=== PATIENT | female | born 1940 | race Caucasian/White ===

== ENCOUNTER 2017-05-04 04:27 | Emergency (ER) | payer MEDICARE, OTHER ==
[~2017-05-04] VITALS: Ht 157.5 cm; Wt 59.0 kg
[~2017-05-04 04:27] MED LIST: AMLO5TAB2 PO; CARV12.5 PO; CLON1TAB4 PO; ESCI20TA PO; HYDR10TA12 PO; MECL25TA3 PO; NAPR375T5 PO; ROSU20TA PO; TOLT4CAP PO; VALS1TAB4 PO; ZOLP10TA2 PO
--- NOTE | 2017-05-04 04:37 | NUR ---
PT BIBA#860 FROM HOME, PT C/O BILATERAL KNEE PAIN WHEN STANDING S/P FALLING OUT OF BED ON KNEES EARLIER THEA. PT AOX3 RR EVEN AND UNLABORED. NO SOB NOTED. NAD NOTED. NO NVD AT THIS TIME. PT GOWNED AND PLACED ON MONITOR WAITING FOR MD WARREN.
--- NOTE | 2017-05-04 04:38 | NUR ---
PT STATES SHE IS NOT IN PAIN AT THIS TIME.
[2017-05-04] MEDS ORDERED: IBUPROFEN 400 MG TABLET PO ONE (05:30)
[2017-05-04] MEDS ORDERED: IBUPROFEN 400 MG TABLET ONE (05:38)
--- NOTE | 2017-05-04 06:05 | NUR ---
SPOKE TO SON JEFF, SON TO [employer] COUNSELOR PT
--- NOTE | 2017-05-04 06:25 | NUR ---
Patient discharged to home in stable condition. Written and verbal after care instructions given. Patient verbalizes understanding of instruction. ambulatory with a steady gait, pt w/c to lobby per sons request.
[2017-05-04 06:26] VITALS: BP 158/70
[2017-05-15] MEDS ORDERED: AZIT250T13 PO (11:11)
== END 2017-05-04 06:27 | disposition home or self-care (01) ==
LOC: ER 04:29
DX: S83.91XA Sprain of unspecified site of right knee, initial encounter (principal); S83.92XA Sprain of unspecified site of left knee, initial encounter; E11.9 Type 2 diabetes mellitus without complications; I10 Essential (primary) hypertension; Z79.899 Other long term (current) drug therapy; Z98.890 Other specified postprocedural states; W06.XXXA Fall from bed, initial encounter; Y93.89 Activity, other specified; Y92.89 Other specified places as the place of occurrence of the external cause; Y99.8 Other external cause status
CPT/HCPCS: 73564-TC; A4606; Z7610

== ENCOUNTER 2017-05-12 12:05 | Inpatient (IN) | payer MEDICARE, OTHER ==
[~2017-05-12] VITALS: Ht 160 cm; Wt 77.1 kg
[2017-05-12] MEDS ORDERED: IV NS 0.9% 500 ML BAG IV ONE (12:30)
[2017-05-12] MEDS ORDERED: IPRATROPIUM NEB FS 0.5 MG/2.5 ML AMPUL.NEB NEB ONE (12:30)
[2017-05-12] MEDS ORDERED: ALBUTEROL FS 2.5 MG/3 ML VIAL.NEB NEB ONE (12:30)
[2017-05-12 12:37] LABS: BASOPHILS # (AUTO) 0.3 /CMM (0.0-0.2); BASOPHILS % (AUTO) 2.5 % (0.0-2.0); EOSINOPHILS # (AUTO) 0.1 /CMM (0.0-0.7); EOSINOPHILS % (AUTO) 0.7 % (0.0-6.0); HEMATOCRIT 36 % (33-45); HEMOGLOBIN 12.2 g/dL (11.5-14.8); LYMPHOCYTES # (AUTO) 2.2 /CMM (0.8-4.8); LYMPHOCYTES % (AUTO) 20.4 % (20.0-44.0); MEAN CORPUSCULAR HEMOGLOBIN 29 PG (26.0-33.0); MEAN CORPUSCULAR HGB CONC 34 g/dl (31.0-36.0); MEAN CORPUSCULAR VOLUME 85 fL (82-100); MONOCYTES % (AUTO) 9.3 % (2.0-12.0); NEUTROPHILS # (AUTO) 7.4 /CMM (1.8-8.9); NEUTROPHILS % (AUTO) 67.1 % (43.0-81.0); PLATELET COUNT (AUTO) 370 /CMM (150-450); RDW COEFFICIENT OF VARIATION 12.8 (11.5-15.0)
[2017-05-12 12:47] LABS: CALCIUM, SERUM 9.2 mg/dL (8.5-10.1); CARBON DIOXIDE 29 mmol/L (21-32); CHLORIDE 100 mmol/L (98-107); CREATININE 0.9 mg/dL (0.6-1.3); GLUCOSE 202 mg/dL (74-106); SODIUM SERUM 136 mmol/L (136-145); UREA NITROGEN, BLOOD 10 mg/dL (7-18)
[2017-05-12 12:56] LABS: TROPONIN I < 0.017 ng/mL (0.00-0.056)
[2017-05-12] MEDS ORDERED: ALBUTEROL FS 2.5 MG/3 ML VIAL.NEB ONE (13:06)
[2017-05-12] MEDS ORDERED: IPRATROPIUM NEB FS 0.5 MG/2.5 ML AMPUL.NEB ONE (13:06)
[2017-05-12] MEDS ORDERED: IV NS 0.9% 1,000 ML IV PRN (14:53)
[2017-05-12] MEDS ORDERED: ONDANSETRON HCL/PF 4 MG/2 ML VIAL IVP PRN (15:00)
[2017-05-12] MEDS ORDERED: MAGNESIUM HYDROXIDE 30 ML UDC PO PRN (15:00)
[2017-05-12] MEDS ORDERED: ZOLPIDEM TARTRATE 5 MG TABLET PO PRN (15:00)
[2017-05-12] MEDS ORDERED: Z GUARD REMEDY 2 OZ OINT TP PRN (15:00)
[2017-05-12] MEDS ORDERED: MAG HYDROX/AL HYDROX/SIMETH 30 ML UDC PO PRN (15:00)
[2017-05-12] MEDS ORDERED: hydrOXYzine 10 MG TABLET PO PRN (15:00)
[2017-05-12] MEDS ORDERED: MECLIZINE HCL 25 MG TABLET PO PRN (15:00)
[2017-05-12] MEDS ORDERED: HYDROCODONE/APAP 5/325MG 1 EACH TABLET PO PRN (15:00)
[2017-05-12] MEDS ORDERED: ACETAMINOPHEN 325 MG TABLET PO PRN (15:00)
[2017-05-12] MEDS ORDERED: clonazePAM 1 MG TABLET PO PRN (15:00)
[2017-05-12] MEDS ORDERED: ALBUTEROL FS 2.5 MG/3 ML VIAL.NEB NEB PRN (15:30)
[2017-05-12] MEDS ORDERED: ALPRAZOLAM 0.25 MG TABLET PO PRN (15:30)
[2017-05-12 16:00] VITALS: BP 150/85
[2017-05-12] MEDS: ENOXAPARIN SODIUM 40 MG/0.4 ML DISP.SYRIN SQ SCH (16:00)
[2017-05-12 18:41] VITALS: BP 150/85
[2017-05-12 20:00] VITALS: BP 143/65
[2017-05-12] MEDS: ZOLPIDEM TARTRATE 10 MG TABLET PO SCH (22:10)
[2017-05-12] MEDS: CARVEDILOL 12.5 MG TABLET PO SCH (22:11)
[2017-05-12] MEDS: ATORVASTATIN 40 MG TABLET PO SCH (22:17)
[2017-05-12] MEDS ORDERED: INSU10VI3 SQ (22:50)
[2017-05-13] VITALS: BP 145/71
[2017-05-13] MEDS ORDERED: DEXTROSE 50%-WATER 50 ML DISP.SYRIN IV PRN ×3 (02:00→15:00)
[2017-05-13 04:00] VITALS: BP 120/56
[2017-05-13] MEDS: BLOOD SUGAR DIAGNOSTIC 1 EACH STRIP IN SCH ×5 (06:05→21:05)
[2017-05-13] MEDS: INSULIN REGULAR, HUMAN 100 UNIT/ML 3 ML VIAL SQ PRN ×4 (06:05→21:12)
[2017-05-13 06:40] LABS: BASOPHILS % (AUTO) 0.4 % (0.0-2.0); EOSINOPHILS # (AUTO) 0.1 /CMM (0.0-0.7); EOSINOPHILS % (AUTO) 0.6 % (0.0-6.0); HEMATOCRIT 32 % (33-45); HEMOGLOBIN 11.1 g/dL (11.5-14.8); LYMPHOCYTES # (AUTO) 1.8 /CMM (0.8-4.8); LYMPHOCYTES % (AUTO) 20.4 % (20.0-44.0); MEAN CORPUSCULAR HEMOGLOBIN 30 PG (26.0-33.0); MEAN CORPUSCULAR HGB CONC 34 g/dl (31.0-36.0); MEAN CORPUSCULAR VOLUME 87 fL (82-100); NEUTROPHILS # (AUTO) 5.8 /CMM (1.8-8.9); NEUTROPHILS % (AUTO) 66.6 % (43.0-81.0); PLATELET COUNT (AUTO) 311 /CMM (150-450); RDW COEFFICIENT OF VARIATION 13.4 (11.5-15.0); RED BLOOD CELL COUNT(AUTO) 3.73 MIL/uL (4.0-5.2); WHITE BLOOD COUNT (AUTO) 8.7 K/uL (4.3-11.0)
[2017-05-13 06:54] LABS: CARBON DIOXIDE 29 mmol/L (21-32); CHLORIDE 99 mmol/L (98-107); MAGNESIUM 1.7 mg/dL (1.8-2.4); PHOSPHORUS 2.9 mg/dL (2.5-4.9); POTASSIUM 4.1 mmol/L (3.5-5.1); SODIUM SERUM 135 mmol/L (136-145); UREA NITROGEN, BLOOD 10 mg/dL (7-18)
[2017-05-13 06:56] LABS: GLUCOSE 351 mg/dL (74-106)
[2017-05-13 07:00] LABS: CHOLESTEROL 142 mg/dL (<200); HDL CHOLESTEROL 33 mg/dL (40-60); LDL 91 mg/dL (0-99); TRIGLYCERIDES 144 mg/dL (30-150)
[2017-05-13 07:01] LABS: TROPONIN I < 0.017 ng/mL (0.00-0.056)
[2017-05-13 08:00] VITALS: BP 128/69
[2017-05-13] MEDS ORDERED: Medication Not On Formulary EA (Rosuvastatin Calcium (Crestor) 20 MG) PO SCH (09:00)
[2017-05-13] MEDS ORDERED: HYDROCHLOROTHIAZIDE 25 MG TABLET PO SCH (09:00)
[2017-05-13] MEDS: ALBUTEROL HALF STRENGTH 1.25 MG/3 ML VIAL.NEB NEB SCH ×3 (09:30→19:17)
[2017-05-13] MEDS: VALSARTAN 80 MG TABLET PO SCH (10:06)
[2017-05-13] MEDS: ESCITALOPRAM OXALATE (10 MG) 10 MG TABLET PO SCH (10:07)
[2017-05-13] MEDS: AMLODIPINE BESYLATE 5 MG TABLET PO SCH (10:07)
[2017-05-13] MEDS: TOLTERODINE 2 MG CAP.SR PO SCH (10:07)
[2017-05-13] MEDS: PANTOPRAZOLE 40 MG TABLET.DR PO SCH (10:08)
[2017-05-13] MEDS: INSULIN NPH/REG 70/30 MIX INJ 100 UNIT/ML VIAL SQ SCH ×2 (11:00→17:00)
[2017-05-13] MEDS: Magnesium 1GM/D5W 100ML PREMIX 100 ML IV SCH ×2 (11:06→12:16)
[2017-05-13] MEDS ORDERED: GUAIFENESIN/CODEINE 10 ML UDC PO PRN (14:30)
[2017-05-13] MEDS ORDERED: methylPREDNISolone SOD SUCC 125 MG/2ML VIAL IV ONE (14:30)
[2017-05-13] MEDS: ALBUTEROL FS 2.5 MG/3 ML VIAL.NEB NEB SCH ×2 (14:30→19:15)
[2017-05-13] MEDS: INSULN 70/30 ASP+PRT/ASP MIX 100 UNIT/ML CARTRIDGE SQ SCH ×2 (15:00→17:34)
[2017-05-13] MEDS ORDERED: INSULIN REGULAR, HUMAN 100 UNIT/ML 3 ML VIAL SQ PRN (15:00)
[2017-05-13] MEDS ORDERED: *INSULIN REGULAR(HUMULIN R)HUM 100 UNIT/ML VIAL SQ PRN (15:00)
[2017-05-13] MEDS: SENNOSIDES/DOCUSATE SODIUM 1 TAB TABLET PO SCH (15:40)
[2017-05-13] MEDS: BENZONATATE 100 MG CAPSULE PO SCH ×2 (15:40→17:27)
[2017-05-13 16:00] VITALS: BP 146/59
[2017-05-13] MEDS ORDERED: BLOOD SUGAR DIAGNOSTIC 1 EACH STRIP IN SCH (17:30)
[2017-05-13 20:00] VITALS: BP 148/72
[2017-05-13] MEDS: ENOXAPARIN SODIUM 40 MG/0.4 ML DISP.SYRIN SQ SCH (21:00)
[2017-05-13] MEDS: CARVEDILOL 12.5 MG TABLET PO SCH (22:06)
[2017-05-13] MEDS: ATORVASTATIN 40 MG TABLET PO SCH (22:06)
[2017-05-13] MEDS: POLYETHYLENE GLYCOL 3350 17 GM POWD.PACK PO SCH (22:07)
[2017-05-13] MEDS: ZOLPIDEM TARTRATE 10 MG TABLET PO SCH (22:07)
[2017-05-14] MEDS: BLOOD SUGAR DIAGNOSTIC 1 EACH STRIP IN SCH ×7 (01:22→23:38)
[2017-05-14] MEDS: INSULIN REGULAR, HUMAN 100 UNIT/ML 3 ML VIAL SQ PRN ×4 (01:26→16:58)
[2017-05-14] MEDS: ALBUTEROL FS 2.5 MG/3 ML VIAL.NEB NEB SCH ×4 (01:30→19:50)
[2017-05-14] MEDS: ALBUTEROL HALF STRENGTH 1.25 MG/3 ML VIAL.NEB NEB SCH ×4 (01:30→19:30)
[2017-05-14 06:59] LABS: HEMATOCRIT 33 % (33-45); HEMOGLOBIN 11.5 g/dL (11.5-14.8); LYMPHOCYTES # (AUTO) 1.1 /CMM (0.8-4.8); MEAN CORPUSCULAR HEMOGLOBIN 30 PG (26.0-33.0); MEAN CORPUSCULAR HGB CONC 35 g/dl (31.0-36.0); MEAN CORPUSCULAR VOLUME 87 fL (82-100); MONOCYTES # (AUTO) 0.2 /CMM (0.1-1.30); MONOCYTES % (AUTO) 1.5 % (2.0-12.0); NEUTROPHILS # (AUTO) 10.8 /CMM (1.8-8.9); NEUTROPHILS % (AUTO) 89.5 % (43.0-81.0); PLATELET COUNT (AUTO) 360 /CMM (150-450); RDW COEFFICIENT OF VARIATION 13.3 (11.5-15.0); RED BLOOD CELL COUNT(AUTO) 3.84 MIL/uL (4.0-5.2)
[2017-05-14 07:08] LABS: CALCIUM, SERUM 9.6 mg/dL (8.5-10.1); CHLORIDE 101 mmol/L (98-107); CREATININE 0.8 mg/dL (0.6-1.3); GLUCOSE 290 mg/dL (74-106); MAGNESIUM 2.2 mg/dL (1.8-2.4); PHOSPHORUS 2.7 mg/dL (2.5-4.9); POTASSIUM 4.7 mmol/L (3.5-5.1); SODIUM SERUM 136 mmol/L (136-145); UREA NITROGEN, BLOOD 14 mg/dL (7-18)
[2017-05-14 07:25] LABS: THYROID STIMULATING HORMONE 0.192 uIU/mL (0.358-3.74)
[2017-05-14 07:48] LABS: CARBON DIOXIDE 25 mmol/L (21-32)
[2017-05-14 08:00] VITALS: BP 157/74
[2017-05-14 08:07] LABS: IRON, SERUM 43 ug/dl (50-175); TOTAL IRON BINDING CAPACITY 265 ug/dl (250-450)
[2017-05-14] MEDS: BENZONATATE 100 MG CAPSULE PO SCH ×3 (08:41→16:47)
[2017-05-14] MEDS: PANTOPRAZOLE 40 MG TABLET.DR PO SCH (08:41)
[2017-05-14] MEDS: ESCITALOPRAM OXALATE (10 MG) 10 MG TABLET PO SCH (08:41)
[2017-05-14] MEDS: TOLTERODINE 2 MG CAP.SR PO SCH (08:42)
[2017-05-14] MEDS: VALSARTAN 80 MG TABLET PO SCH (08:42)
[2017-05-14] MEDS: AMLODIPINE BESYLATE 5 MG TABLET PO SCH (08:42)
[2017-05-14] MEDS: SENNOSIDES/DOCUSATE SODIUM 1 TAB TABLET PO SCH (08:42)
[2017-05-14] MEDS: INSULIN NPH/REG 70/30 MIX INJ 100 UNIT/ML VIAL SQ SCH (08:48)
[2017-05-14] MEDS ORDERED: DEXTROSE 50%-WATER 50 ML DISP.SYRIN IV PRN (16:00)
[2017-05-14] MEDS ORDERED: *INSULIN REGULAR(HUMULIN R)HUM 100 UNIT/ML VIAL SQ PRN (16:00)
[2017-05-14 16:04] VITALS: BP 153/75
[2017-05-14] MEDS ORDERED: BLOOD SUGAR DIAGNOSTIC 1 EACH STRIP IN SCH (17:30)
[2017-05-14 20:00] VITALS: BP 145/60
[2017-05-14 20:41] VITALS: BP 145/60
[2017-05-14] MEDS: ENOXAPARIN SODIUM 40 MG/0.4 ML DISP.SYRIN SQ SCH ×2 (21:00→22:26)
[2017-05-14] MEDS: INSULN 70/30 ASP+PRT/ASP MIX 100 UNIT/ML CARTRIDGE SQ SCH (21:00)
[2017-05-14] MEDS ORDERED: AZITHROMYCIN 500 MG in IV D5W 250 ML IV SCH (22:00)
[2017-05-14] MEDS: ATORVASTATIN 40 MG TABLET PO SCH (22:26)
[2017-05-14] MEDS: POLYETHYLENE GLYCOL 3350 17 GM POWD.PACK PO SCH (22:27)
[2017-05-14] MEDS: CARVEDILOL 12.5 MG TABLET PO SCH (22:31)
[2017-05-14] MEDS: ZOLPIDEM TARTRATE 10 MG TABLET PO SCH (22:31)
[2017-05-14] MEDS ORDERED: AZITHROMYCIN 500 MG VIAL ONE (23:59)
[2017-05-15] MEDS: ALBUTEROL FS 2.5 MG/3 ML VIAL.NEB NEB SCH ×2 (01:20→08:10)
[2017-05-15] MEDS: ALBUTEROL HALF STRENGTH 1.25 MG/3 ML VIAL.NEB NEB SCH ×2 (01:30→08:10)
[2017-05-15 07:29] LABS: BASOPHILS % (AUTO) 0.3 % (0.0-2.0); EOSINOPHILS % (AUTO) 0.1 % (0.0-6.0); HEMATOCRIT 33 % (33-45); HEMOGLOBIN 11.2 g/dL (11.5-14.8); LYMPHOCYTES # (AUTO) 2.5 /CMM (0.8-4.8); LYMPHOCYTES % (AUTO) 15.5 % (20.0-44.0); MEAN CORPUSCULAR HEMOGLOBIN 30 PG (26.0-33.0); MEAN CORPUSCULAR HGB CONC 34 g/dl (31.0-36.0); MEAN CORPUSCULAR VOLUME 87 fL (82-100); MONOCYTES # (AUTO) 1.2 /CMM (0.1-1.30); MONOCYTES % (AUTO) 7.3 % (2.0-12.0); NEUTROPHILS # (AUTO) 12.5 /CMM (1.8-8.9); NEUTROPHILS % (AUTO) 76.8 % (43.0-81.0); PLATELET COUNT (AUTO) 363 /CMM (150-450); RDW COEFFICIENT OF VARIATION 13.7 (11.5-15.0); RED BLOOD CELL COUNT(AUTO) 3.74 MIL/uL (4.0-5.2); WHITE BLOOD COUNT (AUTO) 16.3 K/uL (4.3-11.0)
[2017-05-15] MEDS: BLOOD SUGAR DIAGNOSTIC 1 EACH STRIP IN SCH ×2 (07:37→12:05)
[2017-05-15] MEDS: INSULIN REGULAR, HUMAN 100 UNIT/ML 3 ML VIAL SQ PRN ×2 (07:39→12:06)
[2017-05-15 08:00] VITALS: BP_SYST 132; BP_SYST 144; BP_DIAS 70
[2017-05-15 08:02] LABS: CALCIUM, SERUM 8.9 mg/dL (8.5-10.1); CARBON DIOXIDE 28 mmol/L (21-32); CHLORIDE 103 mmol/L (98-107); CREATININE 0.9 mg/dL (0.6-1.3); GLUCOSE 236 mg/dL (74-106); MAGNESIUM 1.9 mg/dL (1.8-2.4); POTASSIUM 3.9 mmol/L (3.5-5.1); SODIUM SERUM 140 mmol/L (136-145); UREA NITROGEN, BLOOD 18 mg/dL (7-18)
[2017-05-15] MEDS: ESCITALOPRAM OXALATE (10 MG) 10 MG TABLET PO SCH (08:54)
[2017-05-15] MEDS: TOLTERODINE 2 MG CAP.SR PO SCH (08:54)
[2017-05-15] MEDS: PANTOPRAZOLE 40 MG TABLET.DR PO SCH (08:54)
[2017-05-15] MEDS: BENZONATATE 100 MG CAPSULE PO SCH ×2 (08:56→13:00)
[2017-05-15] MEDS: SENNOSIDES/DOCUSATE SODIUM 1 TAB TABLET PO SCH (08:56)
[2017-05-15 08:57] VITALS: BP 132/70
[2017-05-15] MEDS: VALSARTAN 80 MG TABLET PO SCH (08:57)
[2017-05-15] MEDS ORDERED: AMLODIPINE BESYLATE 5 MG TABLET PO SCH (09:00)
[2017-05-15] MEDS: INSULN 70/30 ASP+PRT/ASP MIX 100 UNIT/ML CARTRIDGE SQ SCH (09:05)
[2017-05-15] MEDS ORDERED: AZIT250T13 PO (11:11)
== END 2017-05-15 13:55 | disposition home or self-care (01) | DRG 202 ==
LOC: ER 12:06 → TELE 14:43 → MED 05-13 11:02
PROVIDERS: ADMIT Internal Medicine; ATTEND Internal Medicine
DX: J20.9 Acute bronchitis, unspecified (principal); F33.2 Major depressive disorder, recurrent severe without psychotic features; E11.65 Type 2 diabetes mellitus with hyperglycemia; E83.42 Hypomagnesemia; R07.9 Chest pain, unspecified; E03.9 Hypothyroidism, unspecified; I10 Essential (primary) hypertension; E78.5 Hyperlipidemia, unspecified; K21.9 Gastro-esophageal reflux disease without esophagitis; Z79.4 Long term (current) use of insulin; R53.1 Weakness; F41.0 Panic disorder [episodic paroxysmal anxiety]; T50.2X5A Adverse effect of carbonic-anhydrase inhibitors, benzothiadiazides and other diuretics, initial encounter; Y92.89 Other specified places as the place of occurrence of the external cause
CPT/HCPCS: 36415; 71045-TC; 80048-TC; 80061-TC; 82746; 82962-TC; 83540-TC; 83605-TC; 83735-TC; 84100-TC; 84443-TC; 84484-TC; 85025-TC; 87040-TC; 87081-TC; 87400; 93307-TC; A4606; J0456; J1650; J1815; J2930; J3475; J7030; J7040; J7050; J7060; Z7610

== ENCOUNTER → 2017-12-31 | Emergency (ER) | payer MEDICARE, OTHER ==
[~2017-12-31] VITALS: Ht 157.5 cm; Wt 82.6 kg
[~2017-12-31] MED LIST changes: +AZIT250T13 PO; -CLON1TAB4 PO; +CLON1TAB5 PO; +INSU10VI3 SQ
[2017-12-31 12:45] VITALS: BP 196/87
== END | disposition home or self-care (01) ==
LOC: ER 12:46
DX: M79.675 Pain in left toe(s) (principal); L60.8 Other nail disorders; E11.9 Type 2 diabetes mellitus without complications; I10 Essential (primary) hypertension; Z96.651 Presence of right artificial knee joint; Z79.4 Long term (current) use of insulin
CPT/HCPCS: 73660; 99284; A4606; Z7610